=== PATIENT | female | born 1990 | race Caucasian/White ===

== ENCOUNTER 2017-09-21 15:54 | Emergency (ER) | payer OTHER, MEDICAID ==
[~2017-09-21] VITALS: Ht 154.9 cm; Wt 62.1 kg
[2017-09-21] MEDS ORDERED: SPRINTEC1 EACH PO (16:01)
[2017-09-21] MEDS ORDERED: KEFLEX500 M1 PO (17:20)
[2017-09-21 17:31] VITALS: BP 118/68
== END 2017-09-21 17:32 | disposition home or self-care (01) ==
LOC: M.ERS 15:54
DX: N76.4 Abscess of vulva (principal); F41.9 Anxiety disorder, unspecified; F32.9 Major depressive disorder, single episode, unspecified; F17.200 Nicotine dependence, unspecified, uncomplicated; Z88.8 Allergy status to other drugs, medicaments and biological substances; Z88.2 Allergy status to sulfonamides